=== PATIENT | female | born 1955 | race Caucasian/White ===

== ENCOUNTER 2016-08-26 20:59 | Inpatient (IN) | payer BC ==
--- NOTE | ~2016-08-26 | DS ---
Discharge Summary [facility] [place] [id number] [place]. [address] NAME: BAMBI BLACKWELL : 55 STATUS : DIS IN PAT#: [id number] AGE: 61 ADM/REG DATE : 08/27/16 MR#: [id number] REPORT SERV DATE: 09/02/16 DICTATED BY: DATE: REPORT STATUS : Draft TRANSCRIBED BY: MODL DATE: 09/01/16 ADMISSION DATE: 08/27/2016 DISCHARGE DATE: 09/01/2016 CONSULTATIONS: Dr. Shamar Reilly, [facility]. PERTINENT TEST AND PROCEDURES: Chest x-ray, 08/26/2016, impression: Airspace consolidation demonstrated within the lungs. No pleural effusion or pneumothorax is seen. No acute cardiopulmonary abnormality appreciated. Heavily calcified mediastinal lymph nodes likely related to old granulomatous disease. HOSPITAL COURSE: Please refer to history and physical dated 08/27/[address] Randal Wilder for complete details pertaining to patient's initial presentation upon admission and health history. Also refer to interim discharge summary dated 09/01/2016 provided by Rafaela Lozoya, nurse practitioner covering dates of service between 08/27/2016 and 08/31/2016. Briefly, the patient is a 61-year-old female with a past medical history significant for metastatic breast cancer, hyperglycemia, and psoriasis. The patient presented to the emergency room on 08/27/2016 with chief complaint of nausea, vomiting, and dehydration in the setting of new onset of type 2 diabetes. The patient is currently under the care of Dr. Radha Reilly at [facility] for treatment of longstanding metastatic breast cancer. The patient's last chemotherapy was approximately two weeks prior to this admission. The patient reports difficulty tolerating chemotherapy secondary to side effects including nausea, vomiting, decreased appetite, and dehydration. Initial diagnostic workup included blood work which showed blood glucose of 419 and elevated creatinine reported to be 1.34. The patient was admitted for evaluation and treatment of acute kidney injury with dehydration and new diagnosis of type 2 diabetes. 1. Type 2 diabetes. Per review of medical records, the patient has history of mild hyperglycemia within the past year. Previous A1cs ranged between 5.5 and 7.5. Upon admission, A1c was reported to be 9.6. A adaptive physical educator consult was requested. We will discharge home on Levemir and NovoLog. The patient was also provided prescription for meter, testing strips, and lancets. The patient was instructed to administer Levemir 15 units subcutaneous twice daily, NovoLog 5 units subcutaneous a.c. and sliding scale insulin level to a.c. and bedtime. The patient was educated on titration of insulin doses based on blood glucose. The patient will check blood glucose 4 times daily and follow up with primary care physician on 09/14/2016 for further evaluation and management. The patient had prescriptions for insulin filled prior to discharge home. 2. Acute urinary tract infection. Culture positive for E. coli. Patient completed 7-day antibiotic therapy to include Rocephin and Bactrim. No indication for extended Discharge Summary [address] [address] NAME: BAMBI BLACKWELL : 55 STATUS : DIS IN [facility]#: [id number] AGE: 61 ADM/REG DATE : 08/27/16 MR#: [id number] REPORT SERV DATE: 09/02/16 DICTATED BY: DATE: REPORT STATUS : Draft TRANSCRIBED BY: MODL DATE: 09/01/16 antibiotic therapy at discharge. 3. Acute kidney injury. This was secondary to dehydration. Creatinine is now at baseline and reportedly 0.96. 4. Debility. This is secondary to metastatic breast cancer and ongoing treatment. The patient was evaluated by PT and walker was recommended for home use. The patient obtained walker prior to discharge. 5. Breast cancer with metastases to liver and bone. The patient is currently under treatment with eribulin: The patient will follow up with Dr. Radha Reilly in approximately one week. 6. Acute leukocytosis. This is likely related to high-dose steroids to treat pneumonitis during this admission. The patient is afebrile with no clinical signs or symptoms of underlying infection. 7. Pneumonitis. Continue steroid taper about 10 mg weekly to 0 then stop. Prednisone was reduced to 20 mg p.o. daily starting today x7 days and then taper will be continued by [facility]. DISCHARGE CONDITION: At the time of discharge, the patient is hemodynamically stable. DISCHARGE DIET: 1800 calorie ADA diet. DISCHARGE MEDICATIONS: 1. Eliquis 5 mg tablet p.o. twice daily. 2. NovoLog insulin sliding scale level 2 a.c. and bedtime. The patient to be provided a copy of sliding scale upon discharge. 3. NovoLog 5 units subcutaneous a.c. 4. Prednisone 20 mg p.o. daily x7 days to be titrated to zero per Oncology. 5. Levemir 15 units subcutaneous every 12 hours. 6. Tylenol 325 mg tab, take two tablets p.o. every four hours as needed. 7. Reglan 5 mg tablet p.o. a.c. and bedtime as needed. 8. Aleve 220 mg tablet, take 220-440 mg p.o. daily as needed. 9. Zofran 8 mg tablet p.o. every eight hours as needed. 10.Phenergan 25 mg tablet p.o. every six hours as needed. 11.Magic mouthwash 15 mL p.o. every four hours swish and swallow or spit. DISCHARGE INSTRUCTIONS: 1. Follow up with Dr. Radha Reilly, [facility], 09/07/2016 at 2 p.m. 2. Follow up with Dr. Yip, primary care physician, 09/14/2016, at 3:30 p.m. DICTATED BY: PIYUSH Bledsoe Wadr/MENG PIYUSH Bledsoe Discharge Summary [address] [address] NAME: BAMBI BLACKWELL : 55 STATUS : DIS IN PAT#: [id number] AGE: 61 ADM/REG DATE : 08/27/16 MR#: [id number] REPORT SERV DATE: 09/02/16 DICTATED BY: DATE: REPORT STATUS : Draft TRANSCRIBED BY: JOHNNAL DATE: 09/01/16 / [id number]
--- NOTE | ~2016-08-26 | HP ---
History And Physical [address] [place]. [address] NAME: BAMBI BLACKWELL : 55 STATUS : ADM IN [facility]#: [id number] AGE: 61 ADM/REG DATE : 08/27/16 MR#: [id number] REPORT SERV DATE: 08/27/16 DICTATED BY: EFRAIN DAVIS DATE: 08/27/16 REPORT STATUS : Draft TRANSCRIBED BY: MODL DATE: 08/27/16 DATE OF ADMISSION: 08/27/2016 CHIEF COMPLAINT: A 61-year-old female with longstanding metastatic breast cancer to the bones and liver, now presenting with nausea, vomiting, dehydration, and new onset diabetes. HISTORY OF PRESENT ILLNESS: The patient's history was obtained through an interview with the patient and her , coupled with review [facility]. The patient was first diagnosed with breast cancer in 2013. At that time, it was known to be metastatic to the bone. She has had radiation therapy for bony disease and has been on various chemotherapies over the years and is still followed by Dr. Radha Reilly. She has known metastases to her liver now as well. Her last chemotherapy was about a week ago, and she had difficulty tolerating it. She describes "retching" with some episodes of nausea, vomiting, and very poor appetite, and she feels dehydrated with dryness of her mouth. She has had a slight nonproductive cough, some problems with shortness of breath. No chest pain. Her main pain complaint this evening has been bilateral hip pain, aching quality, 6/10 in severity. No abdominal pain though. No back pain. No headache. No diarrhea. No change in urine habits. The patient has recently had reflux symptoms that have been quite severe but apparently these have been improving. She had some recent dysphagia as well but it also has improved. REVIEW OF SYSTEMS: Otherwise, a 14-point review of systems was obtained and it was negative. PAST MEDICAL HISTORY: 1. Breast cancer, metastatic to the bone and liver with history of chemotherapy and radiation, no surgery, first diagnosed in 2013, followed by Dr. Radha Reilly. 2. Psoriasis. 3. Hyperglycemia. PAST SURGICAL HISTORY: 1. Appendectomy. 2. Inguinal hernia repair. ALLERGIES: NO KNOWN DRUG ALLERGIES. History And Physical [address] [place]. [address] NAME: BAMBI BLACKWELL : 55 STATUS : ADM IN PAT#: [id number] AGE: 61 ADM/REG DATE : 08/27/16 MR#: [id number] REPORT SERV DATE: 08/27/16 DICTATED BY: EFRAIN DAVIS DATE: 08/27/16 REPORT STATUS : Draft TRANSCRIBED BY: MENG DATE: 08/27/16 SOCIAL HISTORY: . 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 One 4-year-old grandchild. No tobacco abuse. No alcohol abuse. FAMILY HISTORY: Father at 57 years of age of heart disease. Grandmother with breast cancer. CURRENT MEDICATIONS: Include Eliquis 5 mg p.o. b.i.d., Z-Eldon, Diflucan 200 mg p.o. daily, Reglan 5 mg before meals and at bedtime, naproxen, Zofran, Phenergan, Magic mouthwash, and Nystatin swish and swallow. PHYSICAL EXAMINATION: VITAL SIGNS: Temperature 98.4, pulse 110, blood pressure 112/55, respiratory rate 16, and O2 saturation 98% on room air. GENERAL: A pleasant, cooperative female, chronically ill in appearance, but in no evidence of acute distress. HEENT: Pupils equal, round, and reactive to light. No conjunctival pallor. No scleral icterus. Nares are patent. Oropharynx is clear of obstruction. Very dry mucous membranes. I do not appreciate any oral thrush. NECK: Trachea midline. No thyromegaly. LYMPH: No cervical lymphadenopathy. No supraclavicular lymphadenopathy. RESPIRATORY: Clear to auscultation at bases. No wheezes, no rales, no rhonchi. Normal respiratory effort. CARDIOVASCULAR: Tachycardic, regular rhythm. No murmurs, rubs, or gallops. No extremity edema is appreciated. ABDOMEN: Distended by exam but this looks more chronic than an acute finding, tender throughout but nonfocal. No rebound. No guarding. The patient does seem to have palpable hepatomegaly. DERMATOLOGICAL: The patient has a grayish discoloration of her skin. There seems to be peripheral pallor. No cyanosis, cool dry extremities. PSYCHIATRIC: A flat affect but claims to be in a good mood. Alert and oriented x3. LABORATORY DATA: Albumin 2.2, lipase 159, ALT 53, alkaline phosphatase 343, total bilirubin 1.9. White blood cell count 3.1, hemoglobin 10, hematocrit 29, platelets 109. Sodium 134, potassium 4.0, chloride 97, bicarb 25, BUN 23, creatinine 1.34 from baseline creatinine of 0.82, glucose 419. Acetone level negative. 16% bands. Urinalysis shows positive leukocyte esterase with 50 white blood cells. STUDIES: 1. Chest x-ray shows widening of her esophagus with apparent distention seen on the x-ray but otherwise no acute cardiopulmonary process. I was actually able to review a CT scan done earlier this month, that also showed that the patient had a dilated esophagus. 2. EKG by my own evaluation shows sinus tachycardia. ASSESSMENT AND PLAN: 1. Acute kidney injury with dehydration. Placed on IV fluids. 2. New diagnosis diabetes. Blood glucose of 419. Check hemoglobin A1c. Placed on History And Physical [address] [address] NAME: BAMBI BLACKWELL : 55 STATUS : ADM IN [facility]#: [id number] AGE: 61 ADM/REG DATE : 08/27/16 MR#: [id number] REPORT SERV DATE: 08/27/16 DICTATED BY: EFRAIN DAVIS DATE: 08/27/16 REPORT STATUS : Draft TRANSCRIBED BY: MENG DATE: 08/27/16 empiric Levemir sliding scale insulin for now. Obtain a inclusion paraeducator consult. 3. Urinary tract infection. Check urine culture. Placed on IV Rocephin. 4. Metastatic breast cancer to the bones and liver. Consult Dr. Radha Reilly, Oncology. [facility]/MODL Efrain Davis M.D. / [id number] CC: Bruno Ireland MD Brooke R. Daniel, M.D.
--- NOTE | ~2016-08-26 | IDS ---
Interim Discharge Summary [facility] [address] [place]. [address] NAME: BAMBI BLACKWELL : 55 STATUS : ADM IN [facility]#: [id number] AGE: 61 ADM/REG DATE : 08/27/16 MR#: [id number] REPORT SERV DATE: 09/01/16 DICTATED BY: MANGO LOZOYA DATE: 08/31/16 REPORT STATUS : Draft TRANSCRIBED BY: MODL DATE: 08/31/16 ADMISSION DATE: 08/27/2016 DISCHARGE DATE: INTERIM DIAGNOSES: 1. Uncontrolled diabetes mellitus type 2. 2. Urinary tract infection, positive E. coli. 3. Acute kidney injury, improving. 4. Anemia. 5. Debility. CONSULTATION: Oncology, Dr. Shamar Reilly. IMAGING: Chest x-ray, 08/26/2016, no acute cardiopulmonary abnormality. LABORATORY DATA: WBC is 11.2, hemoglobin 6.9, hematocrit 20.7, platelet count is 123. Sodium is 139, potassium is 3.9, BUN is 32, creatinine is 1.13. Blood sugar is 87, calcium is 8.2, phosphorus is 2.9, albumin is 1.8. COURSE OF HOSPITAL STAY: Please refer to history and physical dictated by Dr. Randal Wilder on 08/27/2016 for complete admission details. This patient is a 61-year-old female who presents with a history of metastatic breast cancer to bone and liver, and presented to [facility] Emergency Room with complaints of nausea, vomiting, dehydration, and new onset of diabetes. This patient was diagnosed with breast cancer in 2013, has known metastasis to bone and liver. Has been followed by Dr. Reilly. 1. Uncontrolled diabetes mellitus. New diagnosis. The patient stated previous A1c is 5.5. Upon admission A1c obtained, noted A1c of 9.6 this admission. The patient was started on Levemir 10 units subcutaneous b.i.d. as well as NovoLog sliding scale level 3. Due to the patient being on steroids, blood sugars have been difficult to control. The patient's steroids were at 60 mg daily, has now been decreased down to 30 mg daily due to this Levemir was initially at 10 units subcutaneous twice daily increased up to 40 units subcutaneous twice daily; is now decreased down to 30 units subcutaneous twice daily. The patient also has NovoLog 8 units subcutaneous prior to meals. She still remains on sliding scale insulin, sliding scale of level 3. 2. Urinary tract infection, positive E. coli. The patient was initially started on Rocephin. This was changed to Bactrim. She will complete seven days of antibiotics, she is on day five. 3. Acute kidney injury. The patient was noted with elevated creatinine upon admission due to dehydration. This has been monitored and have encouraged fluids. Continue to monitor. The patient's kidney function, this is improving. 4. Anemia. The patient's hemoglobin has been monitored during her stay. She has received two units of blood, one unit on 08/29/2016 and an additional unit on 08/31/2016. 5. Debility. The patient has had complaints of weakness. PT eval was ordered. The patient initially declined physical therapy evaluation, but then did agree to it. Per Interim Discharge Summary [address] [address] NAME: BAMBI BLACKWELL : 55 STATUS : ADM IN [facility]#: [id number] AGE: 61 ADM/REG DATE : 08/27/16 MR#: [id number] REPORT SERV DATE: 09/01/16 DICTATED BY: MANGO LOZOYA DATE: 08/31/16 REPORT STATUS : Draft TRANSCRIBED BY: MENG DATE: 08/31/16 their recommendation, a walker will be needed at home. The order has been written already and outsole caser is aware that the patient needs prior to discharge. Possible discharge in one to two days. Oncology is treating the patient for pneumonitis. Due to this reason the patient will be tapering off steroids. Prescriptions have already been written for insulin and has already filled the prescription. [facility]/MENG Mango Lozoya NP / [id number] CC: Bruno Ireland MD
[2016-08-26 17:45] LABS: ASCORBIC ACID (UR NOT ORDER) NEG (NEG); BASOPHILS 3.9 %; BASOPHILS ABSOLUTE 0.12 10/3/uL (0.0-0.16); BILIRUBIN, URINE NEGATIVE (NEG); EOSINOPHILS 0 %; ER CBC TAT 0 Hrs 09 Mins; ER URINALYSIS TAT 0 Hrs 09 Mins; HEMATOCRIT 29.3 % (36.0-48.0); HEMOGLOBIN 10.2 g/dL (12.0-16.0); IMMATURE GRANULOCYTES 11.5 %; IMMATURE GRANULOCYTES ABSOLUTE 0.35 10/3/uL (0.0-0.11); KETONE, URINE TRACE MG/DL (NEG); LEUKOCYTE ESTERASE(NOT OR SMALL (NEG); LYMPHOCYTES 18.7 %; LYMPHOCYTES ABSOLUTE 0.57 10/3/uL (0.67-4.30); MANUAL DIFF NO %; MEAN CORPUS HGB CONC 34.8 g/dL (32.0-36.0); MEAN CORPUSCULAR HEMOGLOB 32.8 pg (26.0-34.0); MEAN CORPUSCULAR VOLUME 94.2 fL (80-100); MONOCYTES 27.9 %; MONOCYTES ABSOLUTE 0.85 10/3/uL (0.21-1.20); NEUTROPHILS ABSOLUTE 1.16 10/3/uL (2.02-8.40); NUCLEATED RED BLOOD CELLS 11.8 /100WBC (0-0); PLATELET COUNT 101 10/3/uL (150-400); RBC DISTRIBUTION WIDTH 19.1 % (12.0-16.0); RED CELL COUNT 3.11 10/6/uL (4.0-5.6); WBC (NOT ORDERED) (RFLEX) 50 (0-5); WHITE BLOOD CELLS 3.1 10/3/uL (4.5-10.5)
[2016-08-26 17:46] LABS: NITRITE (URINE) NEG (NEG)
[2016-08-26 18:00] LABS: CALCIUM, SERUM 8.6 MG/DL (8.5-10.4); CO2 (CARBON DIOXIDE) 25 MMOL/L (24-34); SGOT(AST) 53 U/L (5-40); SGPT(ALT) 49 U/L (5-65); SODIUM, SERUM 134 MMOL/L (135-148); TOTAL PROTEIN 5.8 G/DL (6.0-8.5)
[2016-08-26 18:03] LABS: A/G RATIO 0.6 (0.7-1.9); ALBUMIN 2.2 G/DL (3.5-5.0); ALKALINE PHOSPHATASE 343 U/L (45-117); BUN (BLOOD UREA NITROGEN) 23 MG/DL (6-23); CHLORIDE, SERUM 97 MMOL/L (96-112); CREATININE 1.34 MG/DL (0.55-1.02); GFR AFRICAN AMERICAN 49 ML/MIN (>=60); GFR NON AFRICAN AMERICAN 43 ML/MIN (>=60); GLOBULIN 3.6 G/DL (2.5-4.1); GLUCOSE, SERUM 419 MG/DL (60-99); TOTAL BILIRUBIN 1.9 MG/DL (0-1.2)
[2016-08-26 18:05] LABS: ANISOCYTOSIS 1+ (5-10/OIF) (0-5/OIF); BAND NEUTROPHILS 16 %; ER DIFF TAT 0 Hrs 29 Mins; IMMATURE GRANS ABSOLUTE (CALC) 0.09 10/3/uL (0.0-0.11); LYMPHOCYTES 22 %; LYMPHOCYTES ABSOLUTE (CALC) 0.68 10/3/uL (0.67-4.30); METAMYELOCYTES 1 %; MONOCYTES 18 %; MONOCYTES ABSOLUTE (CALC) 0.56 10/3/uL (0.21-1.20); MYELOCYTES 2 %; NEUTROPHILS ABSOLUTE (CALC) 1.77 10/3/uL (2.02-8.40); PLATELET ESTIMATE SLT DEC (ADEQUATE); SEGMENTED NEUTROPHIL (0) 41 %; TOTAL NUCLEATED CELLS 100; TOXIC GRANULATION 1+
[2016-08-26 18:06] LABS: GIANT PLATELET RARE; MACROCYTES 1+ (5-10/OIF) (0-5/OIF); POLYCHROMASIA 1+ (2-5/OIF) (0-1/OIF); REACTIVE LYMPHS OCC (0-2%) (0-5%)
[~2016-08-26 20:59] MED LIST: ADVIL PO; AFINITOR10 MG PO; ALEVE220 MG PO; ELIQUIS 5 MG TAB5 MG PO; FEMARA PO; FLAG500TAB PO; GLUCPH PO; LEVAQUIN5T PO; LEVAQUIN750 MG PO; MYTAB GAS80 MG PO; PACLITAXEL IV; PERCOCET1 TA4 PO; PR25 PO; PYR100B PO; XGEVA120 MG/1.7 SC; ZOFRAN ODT4 MG PO; ZOFRAN8 PO
[2016-08-26] MEDS ORDERED: ELIQUIS 5 MG TAB5 MG PO (21:44)
[2016-08-26] MEDS ORDERED: Z-PAK PO (21:52)
[2016-08-26] MEDS ORDERED: FLUCON2 PO (21:52)
[2016-08-26] MEDS ORDERED: PR25 PO (21:52)
[2016-08-26] MEDS ORDERED: ZOFRAN8 PO (21:52)
[2016-08-26] MEDS ORDERED: REG5 PO (21:53)
[2016-08-26] MEDS ORDERED: MAGIC MOUTHWASH PO (21:54)
[2016-08-26] MEDS ORDERED: [UNRECOGNIZED DRUG - REMARK] PO (21:55)
[2016-08-26] MEDS ORDERED: ALEVE220 MG PO (21:55)
[2016-08-26 23:49] LABS: DIRECT BILIRUBIN 1.3 MG/DL (0.0-0.4); INDIRECT BILIRUBIN(NOT ORDER) 0.6 MG/DL (0.1-0.9)
[2016-08-27 00:18] LABS: ACETONE NEG
[2016-08-27 05:11] LABS: PARTIAL THROMBO TIME 30.6 SEC (22.5-37.2)
[2016-08-27 05:12] LABS: INTERNATIONAL NORMAL RATI 1.3 UNITS (-); PROTIME (NOT ORD) 15.8 SEC (12.0-14.5)
[2016-08-27 05:27] LABS: HEMATOCRIT 24.5 % (36.0-48.0); HEMOGLOBIN 8.4 g/dL (12.0-16.0); MEAN CORPUS HGB CONC 34.3 g/dL (32.0-36.0); MEAN CORPUSCULAR HEMOGLOB 32.7 pg (26.0-34.0); MEAN CORPUSCULAR VOLUME 95.3 fL (80-100); MEAN PLATELET VOLUME 10.1 fL (9.2-13.0); NUCLEATED RED BLOOD CELLS 7.5 /100WBC (0-0); PLATELET COUNT 96 10/3/uL (150-400); RBC DISTRIBUTION WIDTH 19.2 % (12.0-16.0); RED CELL COUNT 2.57 10/6/uL (4.0-5.6); WHITE BLOOD CELLS 2.9 10/3/uL (4.5-10.5)
[2016-08-27 05:28] LABS: MANUAL DIFF YES %
[2016-08-27 05:29] LABS: A/G RATIO 0.6 (0.7-1.9); ALBUMIN 1.8 G/DL (3.5-5.0); ALKALINE PHOSPHATASE 277 U/L (45-117); BUN (BLOOD UREA NITROGEN) 21 MG/DL (6-23); CALCIUM, SERUM 7.5 MG/DL (8.5-10.4); CHLORIDE, SERUM 101 MMOL/L (96-112); CO2 (CARBON DIOXIDE) 22 MMOL/L (24-34); CREATININE 1.05 MG/DL (0.55-1.02); GFR AFRICAN AMERICAN 66 ML/MIN (>=60); GFR NON AFRICAN AMERICAN 57 ML/MIN (>=60); GLOBULIN 3.2 G/DL (2.5-4.1); GLUCOSE, SERUM 299 MG/DL (60-99); POTASSIUM, SERUM 3.6 MMOL/L (3.5-5.3); SGOT(AST) 52 U/L (5-40); SGPT(ALT) 40 U/L (5-65); SODIUM, SERUM 133 MMOL/L (135-148); TOTAL BILIRUBIN 1.5 MG/DL (0-1.2)
[2016-08-27 05:38] LABS: BAND NEUTROPHILS 13 %; IMMATURE GRANS ABSOLUTE (CALC) 0.12 10/3/uL (0.0-0.11); LYMPHOCYTES 21 %; LYMPHOCYTES ABSOLUTE (CALC) 0.61 10/3/uL (0.67-4.30); METAMYELOCYTES 4 %; MONOCYTES 11 %; MONOCYTES ABSOLUTE (CALC) 0.32 10/3/uL (0.21-1.20); NEUTROPHILS ABSOLUTE (CALC) 1.86 10/3/uL (2.02-8.40); SEGMENTED NEUTROPHIL (0) 51 %; TOTAL NUCLEATED CELLS 100
[2016-08-27 05:39] LABS: ANISOCYTOSIS 1+ (5-10/OIF) (0-5/OIF); PLATELET ESTIMATE DEC (ADEQUATE)
[2016-08-27 05:40] LABS: SCHISTOCYTES OCC (0-2/OIF)
[2016-08-28 05:22] LABS: BUN (BLOOD UREA NITROGEN) 22 MG/DL (6-23); CALCIUM, SERUM 7.3 MG/DL (8.5-10.4); CHLORIDE, SERUM 107 MMOL/L (96-112); CO2 (CARBON DIOXIDE) 23 MMOL/L (24-34); CREATININE 0.76 MG/DL (0.55-1.02); GFR AFRICAN AMERICAN 98 ML/MIN (>=60); GFR NON AFRICAN AMERICAN 85 ML/MIN (>=60); GLUCOSE, SERUM 241 MG/DL (60-99); POTASSIUM, SERUM 3.6 MMOL/L (3.5-5.3)
[2016-08-28 05:29] LABS: SODIUM, SERUM 140 MMOL/L (135-148)
[2016-08-28 05:43] LABS: HEMATOCRIT 22.2 % (36.0-48.0); HEMOGLOBIN 7.8 g/dL (12.0-16.0); MEAN CORPUS HGB CONC 35.1 g/dL (32.0-36.0); MEAN CORPUSCULAR HEMOGLOB 33.3 pg (26.0-34.0); MEAN CORPUSCULAR VOLUME 94.9 fL (80-100); MEAN PLATELET VOLUME 10.5 fL (9.2-13.0); NUCLEATED RED BLOOD CELLS 6.7 /100WBC (0-0); PLATELET COUNT 87 10/3/uL (150-400); RBC DISTRIBUTION WIDTH 19.2 % (12.0-16.0); RED CELL COUNT 2.34 10/6/uL (4.0-5.6); WHITE BLOOD CELLS 3.7 10/3/uL (4.5-10.5)
[2016-08-28 05:47] LABS: MANUAL DIFF YES %
[2016-08-28 07:23] LABS: ANISOCYTOSIS 1+ (5-10/OIF) (0-5/OIF); BAND NEUTROPHILS 14 %; IMMATURE GRANS ABSOLUTE (CALC) 0.22 10/3/uL (0.0-0.11); LYMPHOCYTES 18 %; LYMPHOCYTES ABSOLUTE (CALC) 0.67 10/3/uL (0.67-4.30); METAMYELOCYTES 6 %; MICROCYTES 1+ (5-10/OIF) (0-5/OIF); MONOCYTES 13 %; MONOCYTES ABSOLUTE (CALC) 0.48 10/3/uL (0.21-1.20); NEUTROPHILS ABSOLUTE (CALC) 2.33 10/3/uL (2.02-8.40); SEGMENTED NEUTROPHIL (0) 49 %; TOTAL NUCLEATED CELLS 100
[2016-08-29 06:17] LABS: CALCIUM, SERUM 7.7 MG/DL (8.5-10.4); CHLORIDE, SERUM 103 MMOL/L (96-112); CO2 (CARBON DIOXIDE) 23 MMOL/L (24-34); CREATININE 0.96 MG/DL (0.55-1.02); GFR AFRICAN AMERICAN 74 ML/MIN (>=60); GFR NON AFRICAN AMERICAN 64 ML/MIN (>=60); SODIUM, SERUM 134 MMOL/L (135-148)
[2016-08-29 06:18] LABS: BUN (BLOOD UREA NITROGEN) 34 MG/DL (6-23); GLUCOSE, SERUM 301 MG/DL (60-99)
[2016-08-29 08:42] LABS: MEAN CORPUS HGB CONC 34.2 g/dL (32.0-36.0); MEAN CORPUSCULAR HEMOGLOB 32.6 pg (26.0-34.0); MEAN CORPUSCULAR VOLUME 95.3 fL (80-100); MEAN PLATELET VOLUME 9.8 fL (9.2-13.0); NUCLEATED RED BLOOD CELLS 13.2 /100WBC (0-0); PLATELET COUNT 88 10/3/uL (150-400); RBC DISTRIBUTION WIDTH 19.8 % (12.0-16.0); RED CELL COUNT 1.93 10/6/uL (4.0-5.6)
[2016-08-29 08:43] LABS: HEMOGLOBIN 6.3 g/dL (12.0-16.0)
[2016-08-29 08:44] LABS: HEMATOCRIT 18.4 % (36.0-48.0); MANUAL DIFF YES %
[2016-08-29 09:08] LABS: ANISOCYTOSIS 1+ (5-10/OIF) (0-5/OIF); BAND NEUTROPHILS 13 %; EOSINOPHILS 4 %; IMMATURE GRANS ABSOLUTE (CALC) 0.45 10/3/uL (0.0-0.11); LYMPHOCYTES 17 %; LYMPHOCYTES ABSOLUTE (CALC) 0.85 10/3/uL (0.67-4.30); METAMYELOCYTES 7 %; MONOCYTES 24 %; MYELOCYTES 2 %; PLATELET ESTIMATE DEC (ADEQUATE); SEGMENTED NEUTROPHIL (0) 33 %; TOTAL NUCLEATED CELLS 100
[2016-08-29 09:09] LABS: POLYCHROMASIA 1+ (2-5/OIF) (0-1/OIF)
[2016-08-29 09:10] LABS: HELMET CELLS OCC (0-2/OIF); SCHISTOCYTES OCC (0-2/OIF); TEARDROP SHAPED RBCS OCC (0-2/OIF)
[2016-08-29 09:12] LABS: ACANTHOCYTES OCC (0-2/OIF)
[2016-08-29 09:13] LABS: MACROCYTES 1+ (5-10/OIF) (0-5/OIF); MICROCYTES 1+ (5-10/OIF) (0-5/OIF)
[2016-08-29 09:14] LABS: ELLIPTOCYTES 1+ (3-10/OIF) (0-2/OIF); TARGET CELLS OCC (1-2/OIF) (0-1/OIF); TOXIC GRANULATION SLT; VACUOLATED NEUTROPHILES OCC
[2016-08-30 05:49] LABS: MEAN CORPUS HGB CONC 33.8 g/dL (32.0-36.0); MEAN CORPUSCULAR HEMOGLOB 31.3 pg (26.0-34.0); MEAN CORPUSCULAR VOLUME 92.9 fL (80-100); MEAN PLATELET VOLUME 10.4 fL (9.2-13.0)
[2016-08-30 05:51] LABS: CHLORIDE, SERUM 104 MMOL/L (96-112); CO2 (CARBON DIOXIDE) 22 MMOL/L (24-34); CREATININE 1.14 MG/DL (0.55-1.02); GFR AFRICAN AMERICAN 60 ML/MIN (>=60); GFR NON AFRICAN AMERICAN 52 ML/MIN (>=60); HEMATOCRIT 23.4 % (36.0-48.0); HEMOGLOBIN 7.9 g/dL (12.0-16.0); PLATELET COUNT 120 10/3/uL (150-400); POTASSIUM, SERUM 4.2 MMOL/L (3.5-5.3); RED CELL COUNT 2.52 10/6/uL (4.0-5.6); SODIUM, SERUM 135 MMOL/L (135-148); WHITE BLOOD CELLS 10.7 10/3/uL (4.5-10.5)
[2016-08-30 05:52] LABS: MANUAL DIFF YES %
[2016-08-30 05:53] LABS: BUN (BLOOD UREA NITROGEN) 39 MG/DL (6-23); GLUCOSE, SERUM 238 MG/DL (60-99)
[2016-08-30 07:06] LABS: ANISOCYTOSIS 1+ (5-10/OIF) (0-5/OIF); BAND NEUTROPHILS 18 %; EOSINOPHILS 1 %; EOSINOPHILS ABSOLUTE (CALC) 0.11 10/3/uL (0.0-0.53); IMMATURE GRANS ABSOLUTE (CALC) 1.07 10/3/uL (0.0-0.11); LYMPHOCYTES 16 %; LYMPHOCYTES ABSOLUTE (CALC) 1.71 10/3/uL (0.67-4.30); METAMYELOCYTES 8 %; MONOCYTES 21 %; MONOCYTES ABSOLUTE (CALC) 2.25 10/3/uL (0.21-1.20); MYELOCYTES 3 %; NEUTROPHILS ABSOLUTE (CALC) 5.56 10/3/uL (2.02-8.40); PLATELET ESTIMATE SLT DEC (ADEQUATE); SEGMENTED NEUTROPHIL (0) 33 %; TOTAL NUCLEATED CELLS 100
[2016-08-30 07:07] LABS: HELMET CELLS OCC (0-2/OIF); MACROCYTES 1+ (5-10/OIF) (0-5/OIF); MICROCYTES 1+ (5-10/OIF) (0-5/OIF); POLYCHROMASIA 1+ (2-5/OIF) (0-1/OIF); SCHISTOCYTES OCC (0-2/OIF); TARGET CELLS OCC (1-2/OIF) (0-1/OIF); TEARDROP SHAPED RBCS OCC (0-2/OIF)
[2016-08-30 07:08] LABS: TOXIC GRANULATION 1+; VACUOLATED NEUTROPHILES OCC
[2016-08-30 07:09] LABS: ELLIPTOCYTES 1+ (3-10/OIF) (0-2/OIF)
[2016-08-31 04:32] LABS: ALBUMIN 1.8 G/DL (3.5-5.0); CALCIUM, SERUM 8.2 MG/DL (8.5-10.4); CHLORIDE, SERUM 107 MMOL/L (96-112); CO2 (CARBON DIOXIDE) 22 MMOL/L (24-34); CREATININE 1.13 MG/DL (0.55-1.02); GFR AFRICAN AMERICAN 61 ML/MIN (>=60); GFR NON AFRICAN AMERICAN 52 ML/MIN (>=60); PHOSPHORUS, SERUM 2.9 MG/DL (2.5-4.5); POTASSIUM, SERUM 3.9 MMOL/L (3.5-5.3); SODIUM, SERUM 139 MMOL/L (135-148)
[2016-08-31 04:35] LABS: BUN (BLOOD UREA NITROGEN) 32 MG/DL (6-23); GLUCOSE, SERUM 87 MG/DL (60-99)
[2016-08-31 04:49] LABS: MEAN CORPUS HGB CONC 33.3 g/dL (32.0-36.0); MEAN CORPUSCULAR HEMOGLOB 31.9 pg (26.0-34.0); MEAN PLATELET VOLUME 10.2 fL (9.2-13.0); NUCLEATED RED BLOOD CELLS 18.1 /100WBC (0-0); PLATELET COUNT 123 10/3/uL (150-400); RED CELL COUNT 2.16 10/6/uL (4.0-5.6); WHITE BLOOD CELLS 11.9 10/3/uL (4.5-10.5)
[2016-08-31 04:54] LABS: HEMATOCRIT 20.7 % (36.0-48.0); HEMOGLOBIN 6.9 g/dL (12.0-16.0); MEAN CORPUSCULAR VOLUME 95.8 fL (80-100)
[2016-08-31 04:56] LABS: MANUAL DIFF YES %
[2016-08-31 06:18] LABS: BAND NEUTROPHILS 26 %; IMMATURE GRANS ABSOLUTE (CALC) 1.67 10/3/uL (0.0-0.11); LYMPHOCYTES 15 %; LYMPHOCYTES ABSOLUTE (CALC) 1.79 10/3/uL (0.67-4.30); METAMYELOCYTES 10 %; MONOCYTES 4 %; MONOCYTES ABSOLUTE (CALC) 0.48 10/3/uL (0.21-1.20); MYELOCYTES 4 %; NEUTROPHILS ABSOLUTE (CALC) 7.97 10/3/uL (2.02-8.40); PLATELET ESTIMATE SLT DEC (ADEQUATE); SEGMENTED NEUTROPHIL (0) 41 %; TOTAL NUCLEATED CELLS 100
[2016-08-31 06:19] LABS: OVALOCYTES 1+ (3-10/OIF) (0-2/OIF); POIKILOCYTOSIS 1+ (5-10/OIF) (0-5/OIF); POLYCHROMASIA 1+ (2-5/OIF) (0-1/OIF); TOXIC GRANULATION 2+
[2016-09-01 05:55] LABS: CALCIUM, SERUM 8.7 MG/DL (8.5-10.4); CHLORIDE, SERUM 106 MMOL/L (96-112); CO2 (CARBON DIOXIDE) 22 MMOL/L (24-34); CREATININE 0.96 MG/DL (0.55-1.02); GFR AFRICAN AMERICAN 74 ML/MIN (>=60); GFR NON AFRICAN AMERICAN 64 ML/MIN (>=60); POTASSIUM, SERUM 3.9 MMOL/L (3.5-5.3); SODIUM, SERUM 139 MMOL/L (135-148)
[2016-09-01 05:56] LABS: BUN (BLOOD UREA NITROGEN) 25 MG/DL (6-23); GLUCOSE, SERUM 66 MG/DL (60-99)
[2016-09-01 06:51] LABS: MEAN CORPUS HGB CONC 33.5 g/dL (32.0-36.0); MEAN CORPUSCULAR HEMOGLOB 31.4 pg (26.0-34.0); MEAN CORPUSCULAR VOLUME 93.9 fL (80-100); PLATELET COUNT 122 10/3/uL (150-400); RBC DISTRIBUTION WIDTH 21.6 % (12.0-16.0); WHITE BLOOD CELLS 14.4 10/3/uL (4.5-10.5)
[2016-09-01 06:54] LABS: HEMOGLOBIN 8.7 g/dL (12.0-16.0); RED CELL COUNT 2.77 10/6/uL (4.0-5.6)
[2016-09-01 06:55] LABS: MANUAL DIFF YES %
[2016-09-01 07:58] LABS: BAND NEUTROPHILS 6 %; LYMPHOCYTES 14 %; LYMPHOCYTES ABSOLUTE (CALC) 2.02 10/3/uL (0.67-4.30); METAMYELOCYTES 7 %; MONOCYTES 6 %; MONOCYTES ABSOLUTE (CALC) 0.86 10/3/uL (0.21-1.20); MYELOCYTES 2 %; NEUTROPHILS ABSOLUTE (CALC) 10.22 10/3/uL (2.02-8.40); SEGMENTED NEUTROPHIL (0) 65 %; TOTAL NUCLEATED CELLS 100
[2016-09-01 07:59] LABS: PLATELET ESTIMATE SLT DEC (ADEQUATE); POLYCHROMASIA 3+ (>10/OIF) (0-1/OIF)
[2016-09-01 08:00] LABS: ANISOCYTOSIS 1+ (5-10/OIF) (0-5/OIF)
[2016-09-01] MEDS ORDERED: P20 PO (11:01)
[2016-09-01] MEDS ORDERED: NOVOLOG SC ×2 (12:22)
[2016-09-01] MEDS ORDERED: T PO (12:23)
[2016-09-01] MEDS ORDERED: LEVEMIR SC (12:23)
[2016-09-20] MEDS ORDERED: ATV.5 PO (16:33)
[2016-09-20] MEDS ORDERED: ALBUTEROL0.083 % INH (16:35)
[2016-09-20] MEDS ORDERED: OXYCOD PO (16:35)
[2016-09-20] MEDS ORDERED: LEVAQUIN750 MG PO (16:36)
[2016-09-20] MEDS ORDERED: L40 PO (16:36)
[2016-09-20] MEDS ORDERED: ZOFRAN8 PO (16:36)
[2016-09-20] MEDS ORDERED: DELTADOSE (16:37)
[2016-09-20] MEDS ORDERED: REG5 PO (16:38)
[2016-09-20] MEDS ORDERED: LEVEMFLXPN SC (16:39)
[2016-09-20] MEDS ORDERED: XGEVA120 MG/1.7 SC (16:42)
[2016-09-20] MEDS ORDERED: ELIQUIS 5 MG TAB5 MG PO (16:44)
[2016-09-25] MEDS ORDERED: LEVAQUIN750 MG PO (09:35)
[2016-09-25] MEDS ORDERED: P20 PO (09:36)
[2016-09-25] MEDS ORDERED: FLAG500TAB PO (09:36)
[2016-09-25] MEDS ORDERED: LEVEMIR SC (09:38)
[2016-09-25] MEDS ORDERED: ZOFRAN4 PO (09:39)
== END 2016-09-01 13:56 | disposition home or self-care (01) | DRG 682 ==
LOC: ER 20:59 → 4EA 08-27 01:55
PROVIDERS: Emergency Medicine; Internal Medicine; Nurse Practitioner Adult Health
PROC: 30233N1 Transfusion of Nonautologous Red Blood Cells into Peripheral Vein, Percutaneous Approach (ICD-10-PCS; principal; 2016-08-29)
DX: N17.9 Acute kidney failure, unspecified (principal); J18.9 Pneumonia, unspecified organism; C78.7 Secondary malignant neoplasm of liver and intrahepatic bile duct; C79.51 Secondary malignant neoplasm of bone; N39.0 Urinary tract infection, site not specified; C50.919 Malignant neoplasm of unspecified site of unspecified female breast; E11.65 Type 2 diabetes mellitus with hyperglycemia; B96.20 Unspecified Escherichia coli [E. coli] as the cause of diseases classified elsewhere; E86.0 Dehydration; Z92.3 Personal history of irradiation; Z92.21 Personal history of antineoplastic chemotherapy; L40.9 Psoriasis, unspecified; R53.81 Other malaise; K21.9 Gastro-esophageal reflux disease without esophagitis; Z79.01 Long term (current) use of anticoagulants; D64.81 Anemia due to antineoplastic chemotherapy; D72.829 Elevated white blood cell count, unspecified; Z79.4 Long term (current) use of insulin
CPT/HCPCS: 36415; 71010; 80048; 80053; 80069; 81001; 82009; 82248; 82962; 83036; 83690; 83735; 84443; 85025; 85610; 85730; 86850; 86900; 86901; 86920; 87077; 87086; 87186; 93005; 96374; 96375; 97161-GP; 99285; A9270-GY; J1940; J2405; P9040